=== PATIENT | male | born 1975 | race African-American/Black ===

== ENCOUNTER 2017-05-03 23:01 | Emergency (ER) | payer SELFPAY ==
[~2017-05-03] VITALS: Ht 172.7 cm; Wt 72.7 kg
[2017-05-03] MEDS ORDERED: amox tr/potassium clavulanate 875/125mg TAB PO ONE (23:25)
[2017-05-03] MEDS ORDERED: LIDOcaine 1.5% w/epinephrine 1:200,000 5ml ampul IJ ONE (23:25)
[2017-05-03] MEDS ORDERED: acetaminophen 325mg tablet PO ONE (23:25)
[2017-05-03] MEDS ORDERED: TETanus/Pertussis (Acell)/Diphther VAC/PF (Tdap-Adult) 0.5ml syringe IMVAC ONE (23:25)
[2017-05-04] MEDS ORDERED: BACI28OI9 TP (01:29)
[2017-05-04] MEDS ORDERED: AMOX-580 PO (01:29)
[2017-05-04 03:46] VITALS: BP 145/78
== END 2017-05-04 03:48 ==
LOC: ER 23:02
DX: S00.83XA Contusion of other part of head, initial encounter (principal); S80.11XA Contusion of right lower leg, initial encounter; W54.0XXA Bitten by dog, initial encounter; Y93.89 Activity, other specified; Y92.89 Other specified places as the place of occurrence of the external cause; Y99.8 Other external cause status
CPT/HCPCS: 70450; 70486; 73560; 90471; 90715; 99284; A6446; A6449; J3490

== ENCOUNTER 2020-03-14 03:30 | Emergency (ER) | payer MEDICAID ==
[~2020-03-14] VITALS: Ht 172.7 cm; Wt 77.3 kg
[~2020-03-14 03:30] MED LIST: BACI28OI9 TP
[2020-03-14] MEDS ORDERED: bacitracin 15gm ointment TP ONE (04:25)
[2020-03-14 04:30] VITALS: BP 135/96
== END 2020-03-14 04:33 ==
LOC: ER 03:31
DX: S80.01XA Contusion of right knee, initial encounter (principal); Z79.2 Long term (current) use of antibiotics; X58.XXXA Exposure to other specified factors, initial encounter; Y93.89 Activity, other specified; Y92.89 Other specified places as the place of occurrence of the external cause; Y99.8 Other external cause status
CPT/HCPCS: 99283